=== PATIENT | male | born 1955 | race Caucasian/White ===

== ENCOUNTER 2017-03-23 10:36 | Inpatient (IN) | payer OTHER ==
[~2017-03-23] VITALS: Ht 188 cm; Wt 100.2 kg
[2017-03-23] VITALS (13 sets, daily range): BP systolic 109–149; BP diastolic 82–93; PULSE 69–86; RESP 15–20; O2SAT 94–98
[2017-03-23] MEDS: Lactated Ringer's 1,000 ML IV SCH ×4 (05:00→17:10)
[~2017-03-23 10:36] MED LIST: Bupivacaine Liposome 1.3% 20 mL Inj INFILTRATE SCH; CeFAZolin Inj 2 GM in IV Premix 1 EACH IV SCH
[2017-03-23] MEDS: Vancomycin Inj 1,000 MG in IV Premix 1 EACH IV SCH (11:30)
[2017-03-23] MEDS ORDERED: Lactated Ringer's 1,000 ML IV SCH (12:37)
[2017-03-23] MEDS ORDERED: Lactated Ringer's 500 ML IV PRN (12:37)
--- NOTE | 2017-03-23 12:37 | PCM.HPANE ---
Patient Data Date of Service: March 23, 2017 (0741) Surgeon Admitting Provider: Attending Provider:Slade Huizar MD Primary Care Physician:Myriam Cruz MD Other Provider:Orlando Benjamin Anesthesia Reason for Visit Left Knee Arthritis Ht/WT & BMI Height (Feet): 6 Height (Inches): 2.00 Weight (Kilograms): 102.050 Body Mass Index 28.00 Allergies Coded Allergies: No Known Allergies (Verified Allergy, Unknown, 03/22/17) Past Anesthesia History Anesthesia History: Denies:: Anesthesia Reactions, Difficult Intubation Diabetes History Hx Diabetes?: No Medications Home Meds Incl Beta John: No No Active Prescriptions or Reported Meds History History of ENT Problems?: No HEENT History: Denies:: Abnormal Airway Denture Type: Full- Upper Full- Lower Teeth Condition: Missing Teeth Hx of Heart Problems?: No Cardiovascular History: Denies:: Heart Murmur Hx of Respiratory Problem?: Yes Respiratory History: Positive for:: Asthma (childhood) Cough (seen primary in 02/13 for a cough) Denies:: COPD Hx Neurologic Problems?: No Neurological History: Denies:: CVA Hx of GI Problems?: No Hx of Problems?: No Male Hx: Denies:: Prostate Problems Scrotal Mass Testicular Surgery Hx Musculoskeletal Problems?: Yes Musculoskeletal History: Positive for:: Osteoarthritis (l knee) Hx Surgeries?: Yes (HERNIA 2007) Hx Any Other Health Problems?: No Hx Diabetes: No Stop/Bang S-Snoring: Do You Snore Loudly: Yes T-Tired: feel tired, fatigued: No O-Obsered: Observed not breath: No P-Blood Pressure: treated: No B- Body Mass Index > 35 kg/m2: No A- Age over 50: Yes N- Neck Large Circumference: No G- Gender Male: Yes SHAWANDA Total Score: 3 SHAWANDA Risk Assessment: Low Risk, <3 Yes Risk Assessment Category Category 1A: Patient has history of documented sleep apnea, and HAS NOT received any narcotic, sedative or anesthesia administration during this stay. Category 1B: Patient has history of documented sleep apnea, and HAS received any narcotic , sedative or anesthesia administration during this stay Category 2: Patient has SUSPECTED Obstructive Sleep Apnea, and HAS received any narcotic , sedative or anesthesia administration during this stay. Category 3: Patient has SUSPECTED Obstructive Sleep Apnea and HAS NOT received narcotic, sedative or anesthesia administration during this stay. Category 4: Outpatient in Procedural Areas with known sleep apnea or who screen positive for High Risk via the STOP/BANG questionnaire. Exam Exam Vital Signs Vital Signs Date Time Temp Pulse Resp B/P Pulse Ox O2 Delivery O2 Flow Rate FiO2 03/23/17 11:51 71 18 149/92 98 Room Air General Appearance: Alert, Oriented X3 HEENT/AIRWAY: MP 1 Lungs: Clear to Auscultation Heart: Exam Unremarkable Meds/Labs/Diagnostics Admission Meds Current Medications Lactated Ringer's (Lr) 1,000 ml @ 120 mls/hr Q8H20M IV Last administered on t 11:51; Start 03/23/17 at 05:00; Stop 03/23/17 at 13:19 Plan Impression Patient chart reviewed, patient interviewed and anesthestic plan with risks, benefits, and alternatives discussed, and informed consent obtained. NPO per Anesth. Guidelines: Yes ASA Physical Status: ASA2 Mod Systemic Disease Anesthetic Plan: MAC, Regional Block (ADDUCTOR CANAL), Ultra Sound, SAB Bene/Risks/Altern/Consents: Yes HP Complete Prior to Induction: Yes Chas Howe MD March 23, 2017 12:36
[2017-03-23] MEDS ORDERED: EPHEDrine Sulfate 50 mg/mL Inj IVPUSH PRN (12:40)
[2017-03-23] MEDS ORDERED: Ondansetron 2 mg/mL 2 mL Inj IVPUSH PRN (12:40)
[2017-03-23] MEDS ORDERED: fentaNYL-PF 50 mCg/mL 2 mL Inj IVPUSH PRN (12:40)
[2017-03-23] MEDS ORDERED: Dexamethasone 4 mg/mL Inj IVPUSH PRN (12:40)
[2017-03-23] MEDS ORDERED: MetoCLOpramide 5 mg/mL 2 mL Inj IVPUSH PRN (12:40)
[2017-03-23] MEDS ORDERED: Phenylephrine 10,000 mCg/mL Inj IVPUSH PRN (12:40)
[2017-03-23] MEDS ORDERED: HYDROmorphone 1 mg/mL Inj IVPUSH PRN (12:40)
[2017-03-23] MEDS ORDERED: Tranexamic Acid 100 mg/mL 10 mL Inj ONE (13:01)
[2017-03-23] MEDS ORDERED: 0.9% Sodium Chloride 100 ML ONE (13:01)
[2017-03-23] MEDS ORDERED: Bupivacaine Liposome 1.3% 20 mL Inj INFILTRATE ONE (13:02)
[2017-03-23] MEDS ORDERED: Bupivacaine-MPF 0.25%/EPI 30 mL Inj INFILTRATE ONE (13:02)
[2017-03-23] MEDS ORDERED: Gentamicin 40 mg/mL 2 mL Inj IRRIGATION ONE (13:02)
--- NOTE | 2017-03-23 15:05 | PCM.ANEP1 ---
Post Anesthesia PACU Phase 1 Assessment Vital Signs 36.5, 84, 94%, 12, 109/85 Vital Signs Date Time Temp Pulse Resp B/P Pulse Ox O2 Delivery O2 Flow Rate FiO2 03/23/17 11:51 71 18 149/92 98 Room Air Anesthetic Administered: Regional Block, SAB Level of Alertness: Awake, talking SCHNEIDER's with Equal Strength: No Pain: No Nausea or Vomiting: No CV Function & Hydration Stable: Yes Airway Device: NONE Oxygen Delivery: Room Air Lungs: Clear to Auscultation Dermatome Level: T10 (Umbilicus) Summary UNEVENTFUL SAB PACU Phase 2 Assessment Complications: No Follow up Care: No Patient Instructions Provided: N/A Chas Howe MD March 23, 2017 15:05
--- NOTE | 2017-03-23 15:28 | OP ---
[address] [address] OPERATIVE REPORT PATIENT: PARESH LEWIS : 1955 MR#: [id number] ADMIT: 03/23/2017 JOB ID: [id number] DATE OF SURGERY: 03/23/2017 PREOPERATIVE DIAGNOSIS(ES): Left knee severe medial compartment osteoarthritis with significant flexion contracture. POSTOPERATIVE DIAGNOSIS(ES): Left knee severe medial compartment osteoarthritis with significant flexion contracture. PROCEDURE: Left knee total knee arthroplasty. SURGEON: Slade Huizar MD SHOOK MACHINE OPERATOR: Cordelia Galdamez PA-C (talent acquisition assistant required due to the major complexity of the operation. INDICATIONS: Severe progressive disability unresponsive to conservative treatment in a gentleman who wishes to proceed with a total knee arthroplasty. He understands and accepts the potential for risks and complications which include but is not limited to infection, thromboembolic, neurovascular events, as well as potential for implant failure. PROCEDURE IN DETAIL: The patient was prepped and draped in usual sterile fashion. An anteromedial approach was made to the knee. The patella was subluxed laterally. The patella was examined as was the trochlear groove and noted to be in pristine condition. Therefore decision was made not to resurface the patella. A drill hole was placed in the distal femur and a 5 degree valgus +2 depth femoral cut was made. Then two additional millimeters of distal femoral bone from the standard cut. Bone fragments removed and the component was sized to a 10 fixed in 3 degrees external rotation. Chamfer block was utilized to make the chamfer cuts and later drill holes were made through the provisional implant. The tibia was then cut with the extramedullary tool. He had marked osteophytosis around the medial side of the patella and the fragment had to be morcellized in order to remove the tibial fragment. The tibia was sized to a G component and a 10 mm medial constrained polyethylene was utilized. Excellent soft tissue tension and tracking, full extension was achieved. Appropriate flexion-extension balance and full extension and flexion was noted and excellent patellar tracking. Wounds were irrigated with sterile irrigant. Pressurized lavage was followed by pressurized cementation. Excess cement was removed during the curing process. The final construct was assembled. The tourniquet was let down. Hemostasis was achieved. A deep Hemovac drain was left. The tissues had been lavaged with a dilute Betadine solution per protocol. Closure over a deep Hemovac drain with 2-0 Quill followed by 2-0 Vicryl, 3-0, and a 4-0 intracuticular stitch was utilized. Patient tolerated the procedure well. There were no complications.
--- NOTE | 2017-03-23 16:13 | DRSVH ---
PROCEDURE: X-RAY LEFT KNEE, ONE OR TWO VIEWS ([id number]) INDICATIONS: POST OP TECHNIQUE: 2 view(s) of the knee acquired. COMPARISON: None. FINDINGS: Bones: Patient is status post knee joint arthroplasty. Hardware components are in expected position s. Visualized bony structures are intact. Soft tissues: Overlying postoperative changes are noted. IMPRESSION: Postoperative left knee arthroplasty as above. Dictated by: Kavita Marie M.D. on 03/23/2017 at 16:11 Approved by: Kavita Marie M.D. on 03/23/2017 at 16:11
[2017-03-23] MEDS ORDERED: Propofol 10,000 mCg/mL 20 mL Inj ONE (16:26)
[2017-03-23] MEDS ORDERED: fentaNYL-PF 50 mCg/mL 2 mL Inj ONE (16:26)
--- NOTE | 2017-03-23 16:30 | NUR ---
received to room 1026 from PACU alert, comfortable, Ortho sign OK, Juan dressing, LSs clear, VSS. No nausea or pain at this time
[2017-03-23] MEDS ORDERED: Alum-Mag Hydrox-Simeth 30 mL Suspension PO PRN (17:10)
[2017-03-23] MEDS ORDERED: Sodium Biphos-Phos 133 mL Enema RECTAL PRN (17:10)
[2017-03-23] MEDS ORDERED: HYDROcodone-APAP 5-325 mg Tablet PO PRN (17:10)
[2017-03-23] MEDS ORDERED: Ondansetron 2 mg/mL 2 mL Inj IV PRN (17:10)
[2017-03-23] MEDS ORDERED: Ondansetron 8 mg ODT Tablet PO PRN (17:10)
[2017-03-23] MEDS ORDERED: MetoCLOpramide 5 mg/mL 2 mL Inj IV PRN (17:10)
[2017-03-23] MEDS ORDERED: LORazepam 0.5 mg Tablet PO PRN (17:10)
[2017-03-23] MEDS ORDERED: Magnesium Hydroxide 10 mL Oral Concentration PO PRN (17:10)
[2017-03-23] MEDS ORDERED: diphenhydrAMINE 25 mg Capsule PO PRN (17:10)
[2017-03-23] MEDS: CeFAZolin Inj 2 GM in IV Premix 1 EACH IV SCH (20:39)
[2017-03-23] MEDS: oxyCODONE-Acetamin 5-325 mg Tablet PO PRN (21:40)
[2017-03-23] MEDS: hydrOXYzine Pamoate 25 mg Capsule PO PRN (21:40)
[2017-03-23] MEDS ORDERED: Vancomycin 1,000 mg/200 mL NS IV ONE (23:00)
[2017-03-24] MEDS: Sodium Chloride LOK Flush 10 mL Syringe IV SCH ×3 (00:30→16:42)
[2017-03-24 00:45] VITALS: BP 147/85; PULSE 90; RESP 16; O2SAT 95
--- NOTE | 2017-03-24 05:03 | NUR ---
Neuro/Pain Pt reports pain 7/10 with mild spasms to left knee. Administered percocet and vistaril PRN with +effects. Pt reports pain down to 4-5/10 and sleeping well. Neuro checks intact. +CMS, moving all toes, bending knee just a little, hemovac intact draining serous fluid.
[2017-03-24] MEDS: CeFAZolin Inj 2 GM in IV Premix 1 EACH IV SCH (05:16)
[2017-03-24 05:45] VITALS: BP 141/81; PULSE 87; RESP 20; O2SAT 94
[2017-03-24 06:23] LABS: BASOPHILS % (AUTO) 0 % (0-3); EOSINOPHILS % (AUTO) 0 % (0-5); Mean Corpuscular Hemoglobin 31.7 pg (27.0-35.0); Mean Corpuscular Volume 85.7 fL (81-100); NEUTROPHILS % (AUTO) 91.7 % (40-74); Platelet Count 300 bil/L (150-400)
--- NOTE | 2017-03-24 07:47 | PCM.PNORTH ---
Subjective Date of Service: March 24, 2017 Visit Information: Reason for Visit Left Knee Arthritis Surgery/Surgery Date L TKA 03/23/17 Post-Op Day # Date of Admission: March 23, 2017 at 16:25 Hospital Day # Subjective Found patient awake and alert sitting up in bed. No complaints of pain at this time. Discussed performance with physical therapy and likely discharge tomorrow on postop day 2. Patient does state that he has a spouse at home which will take care of him and he feels in good condition at this point. Patient states that he is happy with this experience and has found all caregivers he has been involved with to be very good. Postop General: No Complaints, No Shortness of Breath, No Chest Pain, Good Appetite Pain Management: PO, IV Push Objective Exam Objective Alert and oriented 3 and pleasant. Interoperative dressing is clean dry and intact. Calf and thigh are soft and nontender. Toe wiggle and sensation are intact at left lower extremity distally Hemovac drain is in place and working. Right SCD is in place. No physical therapy yet as of this time. Vital Signs and I/O Vital Sign - Last Date Time Temp Pulse Resp B/P Pulse Ox O2 Delivery O2 Flow Rate FiO2 03/24/17 05:45 36.5 87 20 141/81 94 Room Air Intake and Output 03/23/17 03/23/17 03/24/17 Cumulative From/Thru 15:00 23:00 07:00 03/22/17 09:36 - 03/24/17 06:15 Intake Total 1060 ml 230 ml 1290 ml Output Total 70 ml 0 ml 70 ml Balance 990 ml 230 ml 1220 ml Intake Oral 180 ml 180 ml IV Total 1060 ml 50 ml 1110 ml Output Urine Total 0 ml 0 ml Estimated Blood Loss 70 ml 70 ml Lab & Micro Results Laboratory Tests Test 03/24/17 05:33 White Blood Count 28.8th/mm3 (3.8-10.1) Red Blood Count 4.76mil/mm3 (4.40-5.80) Hemoglobin 15.1g/dL (13.8-17.2) Hematocrit 40.8% (41.0-50.0) Mean Corpuscular Volume 85.7fL (81-100) Mean Corpuscular Hemoglobin 31.7pg (27.0-35.0) Mean Corpuscular Hemoglobin Concent 37.0% (32.0-37.0) Red Cell Distribution Width 13.1% (12.3-15.4) Platelet Count 300bil/L (150-400) Neutrophils (%) (Auto) 91.7% (40-74) Lymphocytes (%) (Auto) 3.0% (14-46) Monocytes (%) (Auto) 5.0% (4-12) Eosinophils (%) (Auto) 0% (0-5) Basophils (%) (Auto) 0% (0-3) Result Diagram: 03/24/17 0533 General Appearance: Alert, Oriented X3, Cooperative, No Acute Distress Extremities: No Compartment Syndrom Noted, Thigh & Calf Soft/Nontender Postop Sensory Motor: Distal Motor Intact, Movement in Toes, Distal Sensation Intact SURGICAL WOUND : Drain Location Body Site: Knee Wound Drainage Type: Hemovac Activity: Activity per PT, Ambulate with PT (weightbearing as tolerated on the left lower extremity using front wheel walker) Catheters: None Assessment & Plan Impression Jono Yang is a 61-year-old male seen today on postop day #1 from a left total knee arthroplasty performed on 03/23/[address] Slade Huizar. Patient is in good spirits and is comfortable and is very happy with this process thus far. Problems: Plan Postop day #1 from left total knee arthroplasty performed on 03/23/[address] Slade Huizar. Weightbearing as tolerated on the left lower extremity using front wheeled walker. Continue formal physical therapy for mobility, gait and safety. Continue by mouth pain medication as needed avoiding IV pain medication as soon as possible. Continue ASA 81 mg EC by mouth twice a day 6 weeks postop for DVT prophylaxis. Interoperative dressing will be changed on postop day #2. Hemovac drain will be discontinued today at 1500 hrs. by nursing. Nursing please measure and fit bilateral thigh-high SCOT hose as ordered today. Right may be fit today and left may be fitted tomorrow after dressing change Nursing please discontinue Hemovac drain today at 1500 hrs. Nursing please move patient away from IV pain medication as soon as possible today. Follow-up in 2 weeks at [facility] for wound check and suture removal. Follow-up in 6 weeks at [facility] orthopedic clinic with Dr. Slade Huizar with left two-view knee x-rays on arrival. Anticipate discharge to home with family has caregivers on postop day #2, 2016 VTE Prophylaxis: SCDs (right SCD only), SCOT Hose (bilateral thigh-high SCOT hose. Right on 03/24/2017 and fit left on 03/25/2017 after dressing change), Other (ASA 81 mg EC by mouth twice a day 6 weeks postop for DVT prophylaxis) John Nunez PA-C March 24, 2017 07:47
[2017-03-24] MEDS: hydrOXYzine Pamoate 25 mg Capsule PO PRN ×4 (07:49→22:33)
[2017-03-24] MEDS: oxyCODONE-Acetamin 5-325 mg Tablet PO PRN ×4 (07:49→22:33)
--- NOTE | 2017-03-24 08:43 | NUR ---
Social work note - Initial Assessment Jono Yang is a 61 yr old admitted for L knee arthritis - knee surgery. EMR reviewed: Pt has [employer] insurance, her PCP is Dr Cruz. Pt has refused Adv. Directives. Pt lives at home with his Spouse - He states that family will provide support. No other needs identified. [employer] will follow if needs arise. Plan: Home with in [facility] [place]
[2017-03-24] MEDS: Lactated Ringer's 1,000 ML IV SCH (09:50)
[2017-03-24 10:34] VITALS: BP 133/75; PULSE 92; RESP 18; O2SAT 94
[2017-03-24 15:01] VITALS: BP 128/77; PULSE 89; RESP 20; O2SAT 92
--- NOTE | 2017-03-24 18:41 | NUR ---
Hemovac Removal Hemovac removed per provider orders, pressure applied over removal site and dressing applied. Patient tolerated removal well. Care is ongoing.
[2017-03-24 20:08] VITALS: BP 136/79; PULSE 85; RESP 20; O2SAT 93
[2017-03-25 00:54] VITALS: BP 141/82; PULSE 91; RESP 20; O2SAT 96
[2017-03-25] MEDS: Sodium Chloride LOK Flush 10 mL Syringe IV SCH ×3 (01:08→16:30)
[2017-03-25] MEDS: Lactated Ringer's 1,000 ML IV SCH (02:30)
[2017-03-25] MEDS: hydrOXYzine Pamoate 25 mg Capsule PO PRN ×3 (05:17→14:50)
[2017-03-25] MEDS: oxyCODONE-Acetamin 5-325 mg Tablet PO PRN ×3 (05:18→14:51)
--- NOTE | 2017-03-25 06:48 | NUR ---
PAIN/ACTIVITY: Pt. resting in bed through the night. Voiding dark fito urine per urinal independently. Medicated with 2 Percocet and 50 mg of Vistaril prn dose for pain control. Effective, pt able to sleep through the night. A & O, vss. On going care.
--- NOTE | 2017-03-25 11:36 | PCM.PNORTH ---
Subjective Date of Service: March 25, 2017 Visit Information: Reason for Visit Left Knee Arthritis Surgery/Surgery Date L TKA 03/23/17 Post-Op Day # 2 Date of Admission: March 23, 2017 at 16:25 Hospital Day # Subjective Patient states yesterday he ambulating 150-200 feet and today he is "feeling it. " He states he is uncomfortable today. He states he has done morning PT and that "went well." He is worried about his pain control but understands that he just finished with PT and will likely feel better shortly. Postop General: No Complaints, No Shortness of Breath, No Chest Pain, Good Appetite Pain Management: PO, IV Push Objective Exam Objective Patient sitting up in chair Vital Signs and I/O Vital Sign - Last Date Time Temp Pulse Resp B/P Pulse Ox O2 Delivery O2 Flow Rate FiO2 03/25/17 11:09 Room Air 03/25/17 00:54 36.5 91 20 141/82 96 Intake and Output 03/24/17 03/24/17 03/25/17 Cumulative From/Thru 15:00 23:00 07:00 03/22/17 09:36 - 03/25/17 06:47 Intake Total 1127 ml 978 ml 0 ml 3395 ml Output Total 1000 ml 550 ml 700 ml 2320 ml Balance 127 ml 428 ml -700 ml 1075 ml Intake Oral 120 ml 978 ml 0 ml 1278 ml IV Total 1007 ml 0 ml 2117 ml Output Urine Total 1000 ml 550 ml 700 ml 2250 ml Estimated Blood Loss 70 ml # Voids 3 1 4 # Bowel Movements 0 0 0 Result Diagram: 03/24/17 0533 General Appearance: Alert, Oriented X3, Cooperative, No Acute Distress Extremities: Distal Pulses Palpable, No Compartment Syndrom Noted, Tenderness/ Swelling Noted Postop Sensory Motor: Distal Motor Intact, Movement in Toes, Distal Sensation Intact, NVI Distally SURGICAL WOUND : Wound Location/Description Perioperative dressing clean, dry and intact Drain Location Body Site: Knee Incision General Appearance: No Direct Observation Wound Drainage Type: Hemovac Activity: Activity per PT, Ambulate with PT (weightbearing as tolerated on the left lower extremity using front wheel walker) Catheters: None Assessment & Plan Impression POD#1 left TKA Problems: Plan Weightbearing: Weightbearing as tolerated with a front-wheeled walker DVT prophylaxis: Aspirin 81 mg twice a day 6 weeks Physical therapy for transfers, progressive ambulation, strengthening Wound care:Perioperative dressing will be changed to an island dressing today. Compression stockings should then be applied over the island. Analgesia: Oral pain medications Discharge plan: Discharge home today. Start outpatient physical therapy next week. Follow-up plan: In 2 weeks at [facility] with PA for wound check and at [address] Huizar with x-rays VTE Prophylaxis: SCDs (right SCD only), SCOT Hose (bilateral thigh-high SCOT hose. Right on 03/24/2017 and fit left on 03/25/2017 after dressing change), Other (ASA 81 mg EC by mouth twice a day 6 weeks postop for DVT prophylaxis) Cordelia Galdamez PA-C March 25, 2017 11:36
--- NOTE | 2017-03-25 11:42 | PCM.DIORTH ---
Ortho Discharge Instruction Date of Service: March 25, 2017 Dates of Hospitalization Date of Hospital Admission March 23, 2017 at 16:25 Providers Admitting Physician: Slade Huizar MD Primary Care Physician: Myriam Cruz MD Attending Physician: Slade Huizar MD Diet Discharge Diet: No restrictions Activity Discharge Activity-General: Try not to overdue, Be up and about, Ice incision 3 -5 time/day for 20min Left Lower Extremity: Weight Bearing as tolerated Discharge Assist Device: Front Wheeled Walker Dressing and Incisional Care Discharge Dressing Care: Keep dressing clean, dry & intact Discharge Hygiene: May shower (with dressing covered) Additional Instructions Discharge Instructions Weightbearing: Weightbearing as tolerated with a front-wheeled walker DVT prophylaxis: Aspirin 81 mg twice a day 6 weeks Wound care:Perioperative dressing will be changed to an island dressing today. Compression stockings should then be applied over the island. Shower instructions: May shower with dressings covered with a plastic bag or saran wrap until 1 week post-operatively. After one week, if there is no drainage and the incision is dry, patient may shower with no dressings and may get incision wet. Analgesia: Percocet and Vistaril for pain management Start outpatient physical therapy next week. Follow-up plan: In 2 weeks at [facility] with LAURE for wound check and at [address] Huizar with x-rays Cordelia Galdamez PA-C March 25, 2017 11:42
[2017-03-25] MEDS ORDERED: HYDR-3797 PO (11:43)
[2017-03-25] MEDS ORDERED: OXYC1TAB24 PO (11:43)
[2017-03-25] MEDS ORDERED: ASPI-973 PO (11:43)
[2017-03-25 14:12] VITALS: BP 162/80; PULSE 91; RESP 18; O2SAT 98
--- NOTE | 2017-03-25 17:29 | NUR ---
Discharge Orders for discharge were received. The patient was made aware of the plan for discharge and was agreeable to go. The patient was given information and teaching regarding his diagnosis and treatment, signs and symptoms to be aware of, follow up instructions, scrips and information on new medications, dressing instructions and mobility restrictions for his left lower extremity. The patient verified understanding of this information using the teach back method. The patient signified understanding of this information and his asymptomatic IV was removed intact. The patient was then dressed in his own clothing and his belongings were gathered. The patient then ambulated to a wheelchair and was wheeled to the main entrance where he entered a private vehicle. At the time of discharge the patient was alert and oriented, pain within a tolerable level and denying any nausea or other difficulty.
--- NOTE | 2017-03-31 12:49 | PCM.DC.ORT ---
Discharge Summary Date of Service: Mar 31, 2017 Date of Hospital Admission: March 23, 2017 at 16:25 Date of Surgery: March 23, 2017 Date of Discharge: March 25, 2017 Reason for Hospitalization: Left knee osteoarthritis Procedures Performed: Left total knee arthroplasty Hospital Course: The patient was admitted to the hospital on 03/23/2017 and underwent the above procedure. Antibiotic prophylaxis consisting of Ancef and vancomycin. The surgeon was Dr. Huizar. A Salinas was placed perioperatively. Patient tolerated the procedure well and was transferred to recovery room in stable condition. Salinas was discontinued on postop day 1. Patient had physical therapy to work on ambulation and transfers. Weightbearing as tolerated with walker. Pain was managed with Dilaudid, Percocet, Vistaril, Toradol. DVT prophylaxis: aspirin 81mg BID and SCDs. Hospital course was uncomplicated. Patient was able to perform adequately enough to be discharged home on postop day 2. Follow-up: at [facility] 2 weeks postop for wound check and at [address] Huizar with x-ray. Diagnosis at Time of Discharge Status post left total knee arthroplasty Problems: Disposition: Stable Discharge Instructions: Discharge Instructions Weightbearing: Weightbearing as tolerated with a front-wheeled walker DVT prophylaxis: Aspirin 81 mg twice a day 6 weeks Wound care:Perioperative dressing will be changed to an island dressing today. Compression stockings should then be applied over the island. Shower instructions: May shower with dressings covered with a plastic bag or saran wrap until 1 week post-operatively. After one week, if there is no drainage and the incision is dry, patient may shower with no dressings and may get incision wet. Analgesia: Percocet and Vistaril for pain management Start outpatient physical therapy next week. Follow-up plan: In 2 weeks at [facility] with LAURE for wound check and at [address] Huizar with x-rays Aspirin (Aspirin) 81 Mg Tablet 81 MG PO BID Hydroxyzine Pamoate (HydrOXYzine Pamoate) 25 Mg Capsule 25 MG PO Q4H PRN PRN For Restlessness oxyCODONE-Acetaminophen 5-325 mg (oxyCODONE-Acetaminophen 5-325 mg) 1 Each Tablet 1-2 TAB PO Q6H PRN PRN For Severe Pain Cordelia Galdamez PA-C Mar 31, 2017 12:49
== END 2017-03-25 17:05 | disposition home or self-care (01) | DRG 470 ==
LOC: SAS 10:36 → OSC 16:25
PROVIDERS: ADMIT Orthopaedic Surgery; ATTEND Orthopaedic Surgery
PROC: 0SRD0J9 Replacement of Left Knee Joint with Synthetic Substitute, Cemented, Open Approach (ICD-10-PCS; principal; 2017-03-23 13:00)
DX: M17.12 Unilateral primary osteoarthritis, left knee (principal)

== ENCOUNTER → 2017-05-22 | Day surgery (SDC) | payer OTHER ==
[~2017-05-22] VITALS: Ht 188 cm; Wt 97.5 kg
[~2017-05-22] MED LIST changes: +0.9% Sodium Chloride 1,000 ML IV PRN; +0.9% Sodium Chloride 1,000 ML IV SCH; -Bupivacaine Liposome 1.3% 20 mL Inj INFILTRATE SCH; +CHOL200025 PO; -CeFAZolin Inj 2 GM in IV Premix 1 EACH IV SCH; +HYDR-3797 PO; +NAPR220C11 PO; +OXYC1TAB24 PO; +SILD50TA PO; +Sodium Chloride LOK Flush 10 mL Syringe IV PRN; +fentaNYL-PF 50 mCg/mL 2 mL Inj IVPUSH PRN
[2017-05-22 08:48] VITALS: BP 160/100; PULSE 89; O2SAT 100
[2017-05-22 09:38] VITALS: BP 158/99; PULSE 78; RESP 18; O2SAT 98
[2017-05-22 09:51] VITALS: BP 139/91; PULSE 85; RESP 14; O2SAT 98
--- NOTE | 2017-05-22 16:15 | ENDO ---
[address] [address] ENDOSCOPY PROCEDURE PATIENT: PARESH LEWIS : 1955 MR#: [id number] ADMIT: 05/22/2017 JOB ID: [id number] PROCEDURE PERFORMED: Colonoscopy. INDICATIONS: Screening. Patient's ASA classification is II. Mallampati score II. MEDICATIONS: Versed at 5 mg, fentanyl 125 mcg. INSTRUMENT USED: PCF-H180AL Prep quality was fair. PROCEDURE DETAILS: After informed consent was obtained, patient was brought into the GI suite, where he was placed on oxygen via nasal cannula and monitored with continuous pulse oximeter, telemetry, and blood pressure monitoring. A time-out was performed. Then, he was placed in a left lateral decubitus position and medications were administered for sedation. Digital rectal exam was performed which was unremarkable. The colonoscope was then inserted into the rectum and advanced under direct visualization to the cecum, which was identified by the presence of the ileocecal valve and appendiceal orifice. Once the cecum was reached, the colonoscope was withdrawn back to the rectum. Mucosa and lumen examined. In the rectum, retroflexion was performed. Following retroflexion, remaining air in the rectum was suctioned out and procedure was completed. FINDINGS: 1. In the ascending colon, there were two diminutive polyps removed with cold biopsy forceps. 2. Retroflexed views in the rectum revealed small to moderate-sized internal hemorrhoids. IMPRESSION: 1. Two ascending colon polyps. 2. Internal hemorrhoids. RECOMMENDATIONS: 1. Repeat colonoscopy pending polyp pathology results. 2. Fiber rich diet. COMPLICATIONS: None. ESTIMATED BLOOD LOSS: Less than 5 mL.
--- NOTE | 2017-05-23 13:18 | PATH ---
SURGICAL PATHOLOGY Attending Physician:Maria Dolores Nieto CASE STATUS: Signed Out PATIENT NAME: PARESH LEWIS PID: [id number] : 1955 DATE COLLECTED:05/22/2017 15:36 SPECIMEN: Colon, Polyp CLINICAL HISTORY: 1). ASCENDING POLYPS X2 FINAL DIAGNOSIS: Ascending Colon Polyps: Tubular adenoma involving a single biopsy fragment. ICD10: D12.2 GROSS DESCRIPTION: The specimen is received in one formalin filled container labeled with the patient's name, sublabeled "ascending polyps x2" and consists of 3 portions of tissue which aggregate to 0.4 x 0.2 x 0.2 CM. The specimen is entirely submitted in one cassette. 05/22/2017MN ICD-9 CODES: CPT CODES: 1: 92185 Electronically Signed Out Pratik Barnes MD Located Within [facility] Pathology [facility] [address], [place] [address] Technical component performed at [facility], [facility] [address], [place], [address]
== END | disposition home or self-care (01) ==
LOC: END 05-01 01:57
PROVIDERS: ATTEND Internal Medicine Gastroenterology
DX: Z12.11 Encounter for screening for malignant neoplasm of colon (principal); D12.2 Benign neoplasm of ascending colon; K64.8 Other hemorrhoids; Z79.899 Other long term (current) drug therapy; Z87.891 Personal history of nicotine dependence
CPT/HCPCS: 45380; 88305; G0500; J2250; J3010; J7030